=== PATIENT | female | born 1985 | race Caucasian/White ===

== ENCOUNTER 2019-01-25 10:39 | Emergency (ER) | payer MEDICAID ==
[~2019-01-25] VITALS: Ht 139.7 cm; Wt 36.3 kg
[2019-01-25 10:55] VITALS: BP 121/79
[2019-01-25] MEDS ORDERED: LIDOCAINE 1% HCL (LOCAL ANESTH.) INJ 20ML MDV IJ ONE (11:30)
[2019-01-25] MEDS ORDERED: TETANUS-DIPTH-ACEL PERTUSSIS 0.5ML SYRG IM ONE (11:30)
== END 2019-01-25 12:02 | disposition home or self-care (01) ==
LOC: ER 10:39
DX: S01.81XA Laceration without foreign body of other part of head, initial encounter (principal); N39.0 Urinary tract infection, site not specified; Z88.0 Allergy status to penicillin; W54.0XXA Bitten by dog, initial encounter; Y93.89 Activity, other specified; Y92.098 Other place in other non-institutional residence as the place of occurrence of the external cause; Y99.8 Other external cause status
CPT/HCPCS: 12013; 90471; 90715; 99283; J2001